=== PATIENT | female | born 1995 | race Caucasian/White ===

== ENCOUNTER 2017-06-08 18:24 | Emergency (ER) | payer OTHER ==
[~2017-06-08] VITALS: Wt 52.2 kg
[~2017-06-08 18:24] MED LIST: BENTYL10 MG PO; BIRTH CONTROL1 EAC1 PO; DULCOLAX5 MG PO
[2017-06-08 18:39] VITALS: BP 118/70
== END 2017-06-08 18:42 | disposition home or self-care (01) ==
LOC: ED 18:24
DX: B34.9 Viral infection, unspecified (principal); Z79.899 Other long term (current) drug therapy

== ENCOUNTER → 2018-04-14 | Outpatient (CLI) | payer OTHER ==
[2018-04-14 10:49] LABS: BASO % 0.7 % (0.0-1.0); EOS # 0.1 10*3/uL (0.0-0.4); EOS % 1.1 % (1.0-4.0); HEMATOCRIT 40.1 % (37.0-47.0); HEMOGLOBIN 13.3 g/dl (12.0-16.0); LYMPH # 1.8 10*3/uL (1.3-4.4); LYMPH % 32.5 % (27.0-41.0); MEAN CELL VOLUME 102.3 fl (81.0-99.0); MEAN CORPUSCULAR HGB 33.9 pg (27.0-31.0); MEAN CORPUSCULAR HGB CONC 33.2 g/dl (33.0-37.0); MEAN PLATELET VOLUME 9.4 fl (9.6-12.3); MONO # 0.5 10*3/uL (0.1-1.0); MONO % 9.2 % (3.0-9.0); NEUT # 3.1 10*3/uL (2.3-7.9); NEUT % 56.3 % (47.0-73.0); PLATELET COUNT AUTOMATED 450 10*3/uL (130-400); RED BLOOD COUNT 3.92 10*6/uL (4.10-5.10); RED CELL DISTRI WIDTH 11.9 % (0-14.5); WHITE BLOOD COUNT 5.5 10*3/uL (4.8-10.8)
[2018-04-14 11:16] LABS: ALBUMIN 4.2 gm/dl (3.1-4.5); ALKALINE PHOSPHATASE 62 U/L (45-117); BUN 14 mg/dl (7-24); CHLORIDE 104 mmol/L (98-107); POTASSIUM 4.8 mmol/L (3.5-5.1); SGOT/AST 12 IU/L (3-35); SGPT/ALT 19 U/L (12-78); SODIUM 137 mmol/L (136-145); T3 UPTAKE 33 % (31-39); THYROXINE (T4) TOTAL 9.6 ug/dl (4.8-13.9); TOTAL PROTEIN 7.4 gm/dL (6.4-8.2)
[2018-04-14 11:23] LABS: THYROID STIM HORMONE (HS) 0.985 uIU/ml (0.358-4.75)
== END | disposition home or self-care (01) ==
LOC: LAB 10:30
PROVIDERS: Emergency Medicine
DX: R63.4 Abnormal weight loss (principal)

== ENCOUNTER → 2018-06-25 | Outpatient (CLI) | payer OTHER ==
[~2018-06-25] MED LIST changes: +IBUPROFEN600 MG PO; +LAMOTRIGINE100 MG PO
== END | disposition home or self-care (01) ==
LOC: LAB 12:57
DX: R10.2 Pelvic and perineal pain (principal)

== ENCOUNTER → 2018-06-27 | Outpatient (CLI) | payer OTHER | END | disposition home or self-care (01) | LOC: LAB 15:07 | DX: R10.2 Pelvic and perineal pain (principal) ==

== ENCOUNTER 2018-07-10 21:18 | Emergency (ER) | payer OTHER ==
[~2018-07-10] VITALS: Ht 154.9 cm; Wt 54.4 kg
[~2018-07-10 21:18] MED LIST changes: -LAMOTRIGINE100 MG PO
[2018-07-10 21:19] VITALS: BP 127/84
[2018-07-10] MEDS ORDERED: LAMOTRIGINE100 MG PO (21:20)
[2018-07-10 22:00] LABS: BASO % 0.6 % (0.0-1.0); EOS % 0.6 % (1.0-4.0); HEMATOCRIT 37.1 % (37.0-47.0); HEMOGLOBIN 12.4 g/dl (12.0-16.0); LYMPH # 2.4 10*3/uL (1.3-4.4); MEAN CELL VOLUME 101.4 fl (81.0-99.0); MEAN CORPUSCULAR HGB 33.9 pg (27.0-31.0); MEAN CORPUSCULAR HGB CONC 33.4 g/dl (33.0-37.0); MEAN PLATELET VOLUME 9.6 fl (9.6-12.3); MONO # 0.7 10*3/uL (0.1-1.0); MONO % 9.2 % (3.0-9.0); NEUT # 3.9 10*3/uL (2.3-7.9); NEUT % 55.3 % (47.0-73.0); PLATELET COUNT AUTOMATED 388 10*3/uL (130-400); RED BLOOD COUNT 3.66 10*6/uL (4.10-5.10); WHITE BLOOD COUNT 7.1 10*3/uL (4.8-10.8)
[2018-07-10 22:15] LABS: ALBUMIN 3.8 gm/dl (3.1-4.5); ALKALINE PHOSPHATASE 58 U/L (45-117); BUN 12 mg/dl (7-24); CHLORIDE 113 mmol/L (98-107); CREATININE 0.81 mg/dL (0.55-1.02); POTASSIUM 3.6 mmol/L (3.5-5.1); SGOT/AST 7 IU/L (3-35); SGPT/ALT 15 U/L (12-78); SODIUM 142 mmol/L (136-145); TOTAL PROTEIN 6.7 gm/dL (6.4-8.2)
== END 2018-07-10 23:28 | disposition short-term general hospital (02) ==
LOC: ED 21:18
PROVIDERS: Emergency Medicine
DX: O00.90 Unspecified ectopic pregnancy without intrauterine pregnancy (principal); O26.891 Other specified pregnancy related conditions, first trimester; R10.9 Unspecified abdominal pain; Z3A.01 Less than 8 weeks gestation of pregnancy

== ENCOUNTER → 2018-07-25 | Outpatient (CLI) | payer OTHER ==
[~2018-07-25] MED LIST changes: +LAMOTRIGINE100 MG PO
== END | disposition home or self-care (01) ==
LOC: LAB 16:28
DX: N93.9 Abnormal uterine and vaginal bleeding, unspecified (principal)

== ENCOUNTER → 2020-09-15 | Outpatient (CLI) | payer OTHER ==
[2020-09-15 06:20] LABS: BASO % 0.3 % (0.0-1.0); EOS % 0.1 % (1.0-4.0); HEMATOCRIT 38.9 % (37.0-47.0); LYMPH # 1.7 10*3/uL (1.3-4.4); MEAN CELL VOLUME 99.2 fl (81.0-99.0); MEAN CORPUSCULAR HGB 32.7 pg (27.0-31.0); MEAN CORPUSCULAR HGB CONC 32.9 g/dl (33.0-37.0); MONO # 0.5 10*3/uL (0.1-1.0); NEUT # 7.9 10*3/uL (2.3-7.9); NEUT % 77.4 % (47.0-73.0); PLATELET COUNT AUTOMATED 445 10*3/uL (130-400); RED BLOOD COUNT 3.92 10*6/uL (4.10-5.10); RED CELL DISTRI WIDTH 11.8 % (0-14.5); WHITE BLOOD COUNT 10.2 10*3/uL (4.8-10.8)
[2020-09-15 06:31] LABS: ALBUMIN 4.3 gm/dl (3.1-4.5); ALKALINE PHOSPHATASE 64 U/L (45-117); BUN 15 mg/dl (7-24); CHLORIDE 106 mmol/L (98-107); CREATININE 0.76 mg/dL (0.55-1.02); LIPASE 63 U/L (73-393); POTASSIUM 3.8 mmol/L (3.5-5.1); SGOT/AST 9 IU/L (3-35); SGPT/ALT 13 U/L (12-78); SODIUM 140 mmol/L (136-145); TOTAL PROTEIN 7.3 gm/dL (6.4-8.2)
== END | disposition home or self-care (01) ==
LOC: RAD 05:27 → LAB 05:27
PROVIDERS: ATTEND Internal Medicine
DX: K38.1 Appendicular concretions (principal)

== ENCOUNTER → 2021-10-02 | Outpatient (CLI) | payer OTHER ==
[2021-10-03 07:07] LABS: HEPATITIS B SURFACE AB Reactive (.)
[2021-10-03 16:07] LABS: RUBEOLA AB IGG 51.4 AU/mL (Immune >16.4); VARICELLA-ZOSTER IGG 925 index (Immune >165)
== END | disposition home or self-care (01) ==
LOC: LAB 14:08
PROVIDERS: ATTEND Family Medicine
DX: Z02.0 Encounter for examination for admission to educational institution (principal)

== ENCOUNTER 2023-11-04 03:53 | Emergency (ER) | payer OTHER ==
[~2023-11-04] VITALS: Ht 157.4 cm; Wt 54.4 kg
[2023-11-04 03:55] VITALS: BP 146/84
[2023-11-04] MEDS ORDERED: AMOXICILLIN500 M2 PO (04:29)
[2023-11-04] MEDS ORDERED: AMOXICILLIN 500 MG CAP PO ONE (04:30)
== END 2023-11-04 04:35 | disposition home or self-care (01) ==
LOC: ED 03:53
DX: J03.90 Acute tonsillitis, unspecified (principal)

== ENCOUNTER 2024-09-28 15:59 | Emergency (ER) | payer OTHER ==
[~2024-09-28] VITALS: Ht 152.4 cm; Wt 56.7 kg
[~2024-09-28 15:59] MED LIST changes: +AMOXICILLIN500 M2 PO
[2024-09-28] MEDS ORDERED: IOHEXOL 300 MG/ML 100 ML VIAL IV ONE (16:10)
[2024-09-28 16:13] VITALS: BP 144/86
[2024-09-28 16:23] LABS: BASO # 0.0 10*3/uL (0.0-0.1); BASO % 0.3 % (0.0-1.0); EOS # 0.0 10*3/uL (0.0-0.4); EOS % 0.3 % (1.0-4.0); MEAN CELL VOLUME 97.8 fl (81.0-99.0); MEAN CORPUSCULAR HGB 32.5 pg (27.0-31.0); MEAN PLATELET VOLUME 9.1 fl (9.6-12.3); MONO # 0.7 10*3/uL (0.1-1.0); MONO % 5.6 % (3.0-9.0); NEUT # 9.7 10*3/uL (2.3-7.9); NEUT % 83.3 % (47.0-73.0); NUCLEATED RED BLOOD CELL 0.0 % (0.0-0.0); NUCLEATED RED BLOOD CELL 0.0 10*3/uL (0.0-0.0); PLATELET COUNT AUTOMATED 509 10*3/uL (130-400); RED CELL DISTRI WIDTH 12.0 % (0-14.5)
[2024-09-28 16:27] LABS: BILIRUBIN 2+ (Negative); BLOOD 3+ (Negative); CLARITY Cloudy (Clear); COLOR Dark Yellow (Yellow); KETONE Trace (Negative); LEUKO ESTERASE 1+ (Negative); NITRITE Negative (Negative); PH 6.0 (4.5-8.0); SPECIFIC GRAVITY >= 1.030 (1.001-1.030); UROBILINOGEN 1.0 E.U./dl (0.0-1.0)
[2024-09-28] MEDS ORDERED: ACETAMINOPHEN 100 ML IV ONE (16:35)
[2024-09-28 16:40] LABS: BACTERIA 3+; MUCOUS 1+
[2024-09-28 16:44] LABS: BUN 8 mg/dl (9-23)
[2024-09-28 16:45] LABS: SGPT/ALT < 7 U/L (5-49)
[2024-09-28] MEDS ORDERED: POTASSIUM CHLORIDE 20 MEQ TAB PO ONE ×2 (16:50→18:45)
[2024-09-28] MEDS ORDERED: Ondansetron Hydrochloride 4 MG/2 ML VIAL IV ONE (17:25)
[2024-09-28] MEDS ORDERED: Ciprofloxacin Hydrochloride 500 MG TAB PO ONE (18:40)
[2024-09-28] MEDS ORDERED: metroNIDAZOLE 500 MG TAB PO ONE (18:40)
[2024-09-28] MEDS ORDERED: Acetaminophen/Oxycodone 5 MG/325 MG TABLET PO ONE (18:40)
[2024-09-28] MEDS ORDERED: CIPRO500 MG PO (18:41)
[2024-09-28] MEDS ORDERED: METRONIDAZOLE500 M1 PO (18:41)
[2024-09-28] MEDS ORDERED: PERCOCET 5-3251 EACH PO (18:42)
== END 2024-09-28 19:11 | disposition home or self-care (01) ==
LOC: ED 15:59
PROVIDERS: Internal Medicine
DX: K52.9 Noninfective gastroenteritis and colitis, unspecified (principal); N39.0 Urinary tract infection, site not specified; Z79.899 Other long term (current) drug therapy

== ENCOUNTER → 2024-11-03 | Outpatient (CLI) | payer OTHER ==
[~2024-11-03] MED LIST changes: +CIPRO500 MG PO; +METRONIDAZOLE500 M1 PO; +PERCOCET 5-3251 EACH PO
[2024-11-03 10:55] LABS: URINE AMPHETAMINES Negative (1000ng/ml); URINE BARBITURATES Negative (200ng/ml); URINE BENZODIAZEPINES Negative (200ng/ml); URINE CANNABINOIDS (THC) Positive (50ng/ml); URINE COCAINE Negative (300ng/ml); URINE METHADONE Negative (300ng/ml); URINE OPIATES Negative (300ng/ml); URINE PHENCYCLIDINE Negative (25ng/ml)
== END ==
LOC: LAB 11-01 15:23
PROVIDERS: ATTEND Nurse Practitioner Family
DX: Z79.899 Other long term (current) drug therapy (principal)